=== PATIENT | female | born 2000 | race Caucasian/White ===

== ENCOUNTER 2022-10-01 21:50 | Emergency (ER) | payer SELFPAY ==
[~2022-10-01] VITALS: Ht 154.9 cm; Wt 56.8 kg
[2022-10-01 21:59] VITALS: BP 127/87
== END 2022-10-01 23:52 | disposition left against medical advice (07) ==
LOC: ER 21:50
DX: M54.2 Cervicalgia (principal); Z53.21 Procedure and treatment not carried out due to patient leaving prior to being seen by health care provider
CPT/HCPCS: 99281

== ENCOUNTER 2022-10-02 09:57 | Emergency (ER) | payer MEDICAID ==
[~2022-10-02] VITALS: Ht 154.9 cm; Wt 54.5 kg
[2022-10-02 10:31] VITALS: BP 123/80
== END 2022-10-02 11:25 | disposition home or self-care (01) ==
LOC: ER 09:57
DX: S16.1XXA Strain of muscle, fascia and tendon at neck level, initial encounter (principal); X58.XXXA Exposure to other specified factors, initial encounter; Y93.89 Activity, other specified; Y92.89 Other specified places as the place of occurrence of the external cause; Y99.8 Other external cause status
CPT/HCPCS: 99282